=== PATIENT | female | born 1980 | race Caucasian/White ===

== ENCOUNTER 2018-03-21 15:33 | Observation (INO) ==
[2018-03-21 16:21] LABS: Amphetamine Screen,Urine Negative ng/mL (Cutoff=1000); Barbiturate Screen,Urine Negative ng/mL (Cutoff=200); Benzodiazepines Screen,Urine Negative ng/mL (Cutoff=200); Cannabinoid Screen,Urine Negative ng/mL (Cutoff = 50); Cocaine Screen,Urine Negative ng/mL (Cutoff= 300); Opiate Screen,Urine Negative ng/mL (Cutoff=300); Phencyclidine Screen,Urine Negative ng/mL (Cutoff=25)
--- NOTE | 2018-03-21 18:22 | Event Note ---
Date of Encounter: 03/21/18 Time of Encounter: 18:20 Vickie is a 37-year-old female presents to labor and delivery complaining of contractions. On exam she is 3 cm, 50% effaced and -2 station. Contractions are every 5-6 minutes not regular. Patient is been barbara irregularly for the last 2 months. Patient ambulated for approximately 2 hours. She was then rechecked by the same nurse and had no cervical change. We are denies category 1 tracing. Baby doing well. Patient is currently 38 weeks and 5 days. She is scheduled for induction and 2 days. Because there is no cervical change patient is not in labor she will be discharged to home. She is instructed to follow-up Saturday morning.
== END 2018-03-21 18:27 | disposition home or self-care (01) ==
LOC: 1NENULAB
PROVIDERS: ADMIT Obstetrics & Gynecology; ATTEND Obstetrics & Gynecology